=== PATIENT | female | born 2000 | race Caucasian/White ===

== ENCOUNTER 2020-04-16 03:15 | Outpatient (CLI) | payer OTHER, MEDICAID ==
[~2020-04-16] VITALS: Ht 165.1 cm; Wt 85.5 kg
--- NOTE | 2020-04-16 02:30 | NUR ---
G1L0. 38.4. Pt ambulatory to LDR 4 with significant other. Clean gown on. EFM and TOCO explained and applied. Pt states she has been earline all day but states since midnight tonight they have been 5 minutes apart and more intense. Denies leaking of fluids. Reports good movement. +1 pitting edema noted to legs and feet bilaterally. Pt reports she has had headaches, blurred vision and spotting the last couple weeks of but states is aware of this and is not concerned due to her BP remaining normal. Initial BP 134/91. Will continue serial BPs. SVE /-2. Assessment completed and plan of care explained to pt who verblaizes understanding. Call light within reach. 0350: SVE unchanged. Plan of care explained. Pt states contractions remain the same as to when she arrived at hospital. 0358: called and updated on pts status. See physican notification. 0402: Pt off monitors to change. 0415: Discharge instructions given to pt and significant other who verbalize understanding. Pt ambulatory off unit and home with spouse.
[2020-04-16 03:00] VITALS: BP 134/91; PULSE 77; TEMP 97.8
[2020-04-16 03:30] VITALS: BP 122/71; PULSE 76
[2020-04-16 04:02] VITALS: BP 121/82; PULSE 73
[2020-04-16] MEDS ORDERED: PRENATAL MVI PO (04:42)
[2020-04-16] MEDS ORDERED: CELEXA 20MG20 MG/TAB PO (04:42)
[2020-04-16] MEDS ORDERED: IRON 27 MG PO (04:42)
== END 2020-04-16 04:15 | disposition home or self-care (01) ==
LOC: LDRO 03:15
DX: O62.9 Abnormality of forces of labor, unspecified (principal); Z3A.38 38 weeks gestation of pregnancy

== ENCOUNTER 2020-04-25 23:42 | Inpatient (IN) | payer OTHER, MEDICAID ==
[~2020-04-25] VITALS: Ht 165.1 cm; Wt 85.5 kg
[~2020-04-25 23:42] MED LIST: CELEXA 20MG20 MG/TAB PO; IRON 27 MG PO; PRENATAL MVI PO
[2020-04-25 23:45] VITALS: BP 139/93; PULSE 85
[2020-04-26] VITALS (86 sets, daily range): BP systolic 106–157; BP diastolic 57–114; PULSE 67–120; TEMP 98.1–99
[2020-04-26 00:12] LABS: BASO % 0.3 % (0.0-2.0); EOS # 0.2 (0.0-0.7); EOS % 1.5 % (0-4.0); GRAN # 8.4 (1.4-6.5); GRAN % 71.1 % (42.2-75.2); HEMOGLOBIN 11.3 g/dl (12.0-15.0); LYMPH # 2.3 (1.2-3.4); LYMPH % 19.1 % (20.0-51.0); MEAN CELL VOLUME 91 fl (80.0-95.0); MEAN CORPUSCULAR HEMOGLOBIN 31 pg (26.0-32.0); MEAN CORPUSCULAR HGB CONC 34 g/dl (33.0-37.0); MEAN PLATELET VOLUME 12.2 fl (7.4-10.4); MONO # 0.8 (0.1-0.6); MONO % 6.6 % (1.7-9.3); PLATELET COUNT 117 K/mm3 (130-400); RED BLOOD COUNT 3.68 M/mm3 (4.10-5.30); REDCELL DISTRIBUTION WIDTH-CV 15.9 % (11.5-14.5)
[2020-04-26 00:16] LABS: HEMATOCRIT 33.3 % (35.0-45.0)
[2020-04-26 00:22] LABS: ALBUMIN 3.4 gm/dL (3.5-5.0); BILIRUBIN,TOTAL 0.5 mg/dL (0.0-1.0); CREATININE, serum 0.64 (0.52-1.25); POTASSIUM 3.8 mmol/L (3.4-5.0); TOTAL PROTEIN 6.6 gm/dL (6.4-8.2)
[2020-04-26 01:01] LABS: COLLECTION METHOD CLEAN CATCH
[2020-04-26 01:16] LABS: MUCOUS Present /lpf; PH 6 (5-8); URINE APPEARANCE Clear; URINE BACTERIA Rare /hpf; URINE BILIRUBIN Negative (NEGATIVE); URINE BLOOD Negative (NEGATIVE); URINE COLOR Yellow; URINE GLUCOSE Negative (NEGATIVE); URINE KETONE Negative (NEGATIVE); URINE LEUKOCYTE ESTERASE Negative (NEGATIVE); URINE NITRATE Negative (NEGATIVE); URINE PROTEIN(semi-quant) 3+ (NEGATIVE); URINE UROBILINOGEN Negative (NEGATIVE)
--- NOTE | 2020-04-26 02:10 | NUR ---
0210 THIS RN ASSUMED CARE OF PT. MGSO4 4 GM LOADING DOSE ALREADY INFUSING PER PROTOCOL IN LEFT IV SITE. LR INFUSING IN LEFT IV SITE AT 25 ML/HOUR. TURNED TO LEFT SIDE. LIGHTS DOWN. NO C/O HEADACHE, EPIGASTRIC PAIN OR VISUAL DISTURBANCES AT THIS TIME. 0215 APRESOLINE 10MG IVP GIVEN.
--- NOTE | 2020-04-26 02:35 | NUR ---
0235 IV MGSO4 RUNNING AT 2GM PER HOUR RATE.
--- NOTE | 2020-04-26 03:30 | NUR ---
0330 1000CC LR TO IV SITE IN RIGHT WRIST TO RUN AT [employer]. PT VERY TALKATIVE. STATES NO COMPLAINTS AT THIS TIME. REMAINS RESTING ON LEFT SIDE.
--- NOTE | 2020-04-26 03:50 | NUR ---
0350 PITOCIN STARTED PER IVPB IN RIGHT IV SITE AT 2MU/MIN.
--- NOTE | 2020-04-26 05:00 | NUR ---
0500 C/O FEELING VERY CRAMPY. MAY WANT EPIDURAL SOON. RESTING ON RIGHT SIDE.
--- NOTE | 2020-04-26 05:45 | NUR ---
0545 FEELS NEED TO VOMIT. HOB ELEVATED AND WEDGED ON RIGHT SIDE. NO EMESIS. STATES CONTRACTIONS LESS CRAMPY WHEN SITTING UP. STATES DOES HAVE A HEADACHE THAT STARTED WHEN THE PITOCIN STARTED.
--- NOTE | 2020-04-26 06:30 | NUR ---
Report from Coni [address] RN and care of patient assumed. RN at bedside to assess patient and review plan of care. IV lines verified by 2 RNs. Assessment completed. Patient reports headaches but denies visual changes or RUQ pain. Lights remain dim and patient denies questions at this time. Call lights in reach.
--- NOTE | 2020-04-26 06:30 | NUR ---
Difficulty tracing via toco. Lolita replaced and abdomen palpated by RN. Patient reports "Irregular cramping".
--- NOTE | 2020-04-26 09:00 | NUR ---
Dr. Moreno on unit. Reviews patient history, blood pressures in office, and office notes per Dr. Dubose. Patient refusing COVID-19 testing per previous order. After physician reviews documentation and history, decision made that patient does not meet criteria for testing at this time.
--- NOTE | 2020-04-26 09:20 | NUR ---
Dr. Moreno on unit, reviews FHR strip and patient history/vitals. 0926- SVE per provider /2, AROM for moderate amount of clear fluid. Pericare given and patient updated on plan of care. Does not desire epidural at this time. Call light in reach.
--- NOTE | 2020-04-26 10:15 | NUR ---
Patient requesting epidural. Lee Malhotra CRNA. Orders for 250 ml LR bolus prior to epidural, currently infusing. Difficulty tracing contractions via toco as patient is moving in bed frequently with contraction pain. RN at bedside palpating abdomen. 1020- Lee Malhotra CRNA at bedside. Patient assisted to sit on edge of bed for placement. Difficulty tracing FHR due to maternal position and movement, Pitocin infusion paused at this time due to inability to trace. 1031- Epidural test dose by Lee Malhotra CRNA. Patient tolerates well, no adverse reactions noted. See anesthesia record. 1038-Patient repositioned LL following epidural placement. Updated on plan of care and safety. Multiple RNs at bedside adjusting toco, patient moving in bed frequently. 1045- Zofran given, see EMAR.
--- NOTE | 2020-04-26 11:15 | NUR ---
Multiple RNs remains at bedside adjusting toco and palpating abdomen.
--- NOTE | 2020-04-26 11:40 | NUR ---
Dr. Moreno on unit, reviews FHR strip, contraction pattern and updated on SVE. No new orders.
--- NOTE | 2020-04-26 12:02 | NUR ---
on unit. Orders to increase Pitocin to 20 mU and hold for one hour. If unchanged SVE at that time increase Pitocin to 30 mU.
[2020-04-26 13:02] LABS: HEMOGLOBIN 11.3 g/dl (12.0-15.0); MEAN CELL VOLUME 91 fl (80.0-95.0); MEAN CORPUSCULAR HEMOGLOBIN 31 pg (26.0-32.0); MEAN CORPUSCULAR HGB CONC 34 g/dl (33.0-37.0); MEAN PLATELET VOLUME 12.8 fl (7.4-10.4); PLATELET COUNT 101 K/mm3 (130-400); RED BLOOD COUNT 3.66 M/mm3 (4.10-5.30); REDCELL DISTRIBUTION WIDTH-CV 16.3 % (11.5-14.5)
[2020-04-26 13:05] LABS: HEMATOCRIT 33.2 % (35.0-45.0)
[2020-04-26 13:14] LABS: ALBUMIN 3.3 gm/dL (3.5-5.0); BILIRUBIN,TOTAL 0.6 mg/dL (0.0-1.0); CALCIUM 7.9 mg/dL (8.4-10.2); CREATININE, serum 0.72 (0.52-1.25); TOTAL PROTEIN 6.6 gm/dL (6.4-8.2)
[2020-04-26 13:17] LABS: MAGNESIUM 6.3 mg/dL (1.6-2.3)
--- NOTE | 2020-04-26 14:25 | NUR ---
LUIS per Donna Lindsay RN /-1. Patient repositioned LL.See physician notification.
--- NOTE | 2020-04-26 15:50 | NUR ---
Dr. Moreno on unit, reviews FHR strip and contraction pattern. No new orders at this time.
--- NOTE | 2020-04-26 16:31 | NUR ---
1615- Dr. Moreno at bedside. Reviews FHR strip. SVE per provider . Patient repositioned LL with right leg in stirrup. Physician remains on unit.
--- NOTE | 2020-04-26 17:15 | NUR ---
Patient repositioned to Mireille position. Dr. Moreno on unit, review strip. No new orders. Physician will assess patient after surgery.
--- NOTE | 2020-04-26 17:55 | NUR ---
Patient very uncomfortable with contractions. Lee Malhotra FIELD PROFESSIONAL Notified and requested to come assess when available. Dr. Moreno on unit.
--- NOTE | 2020-04-26 18:18 | NUR ---
Pt screaming with contractions. T.Thibodaux into room for epidural dosing/adjustment, see anesthesia record.
--- NOTE | 2020-04-26 18:23 | NUR ---
Dr Moreno into room, SVE. Discusses lack of cervical change with pt and boyfriend. Will recheck in 1 hour and if no cervical change will do . Questions invited and answered.
--- NOTE | 2020-04-26 19:15 | NUR ---
SVE with no changes noted. Report called to Dr Moreno.
--- NOTE | 2020-04-26 19:30 | NUR ---
SVE by Dr Moreno, no change. C/S discussed, Pitocin gtt off.
[2020-04-27] VITALS (21 sets, daily range): BP systolic 116–146; BP diastolic 72–108; PULSE 64–100; TEMP 97.7–98.4
--- NOTE | 2020-04-27 04:30 | NUR ---
Just completed pericare
--- NOTE | 2020-04-27 06:00 | NUR ---
Mag Sulfate turned off.
--- NOTE | 2020-04-27 06:30 | NUR ---
0630-Recieved bedside shift report. Patient A&Ox4, IVF to left forearm. Mag infusion turned off by previous ners per MD orders. Denies headache or vision changes. Reports pain controlled at this time reviewed pain managment options. Assessment complete. Dunne to DD, clear yellow urine. Assisted with . 0730-Dr. Dubose to room, orders to stop IVF. Reviews plan of care with patient. 0800-Dr. Dubose reviews labs and gives verbal order to transfer patient to unit and may have general diet. 1030-Dr Dubose contacted with recent BP's following magnesium infusing being shut off. Orders to continue to transfer to room.
[2020-04-27 08:17] LABS: MEAN CELL VOLUME 92 fl (80.0-95.0); MEAN CORPUSCULAR HGB CONC 34 g/dl (33.0-37.0); MEAN PLATELET VOLUME 12.9 fl (7.4-10.4); PLATELET COUNT 113 K/mm3 (130-400); RED BLOOD COUNT 3.06 M/mm3 (4.10-5.30); REDCELL DISTRIBUTION WIDTH-CV 16.6 % (11.5-14.5)
[2020-04-27 08:19] LABS: HEMATOCRIT 28.2 % (35.0-45.0); HEMOGLOBIN 9.7 g/dl (12.0-15.0); MEAN CORPUSCULAR HEMOGLOBIN 32 pg (26.0-32.0)
[2020-04-27 08:29] LABS: ALBUMIN 2.9 gm/dL (3.5-5.0); BILIRUBIN,TOTAL 0.4 mg/dL (0.0-1.0); CALCIUM 6.8 mg/dL (8.4-10.2); CREATININE, serum 0.89 (0.52-1.25); POTASSIUM 4.5 mmol/L (3.4-5.0); TOTAL PROTEIN 5.9 gm/dL (6.4-8.2)
[2020-04-27 08:54] LABS: MAGNESIUM 5.7 mg/dL (1.6-2.3)
--- NOTE | 2020-04-27 12:00 | NUR ---
1200-Patient up to bathroom with assist x1. Steady Gait. Dunne discontinued, fly care provided. Ambulatory back to bed and taken via bed down to room 213, Oriented to room and updated on plan of care.
[2020-04-27] MEDS ORDERED: PERCOCET 325 MG1 TA2 PO (12:07)
[2020-04-27] MEDS ORDERED: MOTRIN 800800 MG/TAB PO (12:07)
[2020-04-28] VITALS: BP 127/83; PULSE 77; TEMP 98.3
[2020-04-28 04:00] VITALS: BP 135/79; PULSE 78; TEMP 97.9
[2020-04-28 07:31] VITALS: BP 126/84; PULSE 69; TEMP 98.3
[2020-04-28 07:59] LABS: BASO % 0.1 % (0.0-2.0); EOS # 0.2 (0.0-0.7); EOS % 1.1 % (0-4.0); GRAN # 10.9 (1.4-6.5); GRAN % 77.1 % (42.2-75.2); LYMPH # 2.5 (1.2-3.4); LYMPH % 17.4 % (20.0-51.0); MEAN CELL VOLUME 93 fl (80.0-95.0); MEAN CORPUSCULAR HGB CONC 33 g/dl (33.0-37.0); MEAN PLATELET VOLUME 11.4 fl (7.4-10.4); MONO # 0.5 (0.1-0.6); MONO % 3.3 % (1.7-9.3); PLATELET COUNT 120 K/mm3 (130-400); RED BLOOD COUNT 2.87 M/mm3 (4.10-5.30); REDCELL DISTRIBUTION WIDTH-CV 17.2 % (11.5-14.5)
[2020-04-28 08:16] LABS: ALBUMIN 2.8 gm/dL (3.5-5.0); BILIRUBIN,TOTAL 0.3 mg/dL (0.0-1.0); CREATININE, serum 0.84 (0.52-1.25); HEMATOCRIT 26.8 % (35.0-45.0); HEMOGLOBIN 8.9 g/dl (12.0-15.0); MEAN CORPUSCULAR HEMOGLOBIN 31 pg (26.0-32.0); POTASSIUM 4.2 mmol/L (3.4-5.0); TOTAL PROTEIN 5.8 gm/dL (6.4-8.2)
[2020-04-28 11:09] VITALS: BP 128/82; PULSE 74; TEMP 98.4
[2020-04-28 15:57] VITALS: BP 136/89; PULSE 84; TEMP 98.7
[2020-04-28 20:30] VITALS: BP 145/84; PULSE 80; TEMP 98.5
[2020-04-29 01:30] VITALS: BP 136/72; PULSE 82; TEMP 98.2
[2020-04-29 07:15] VITALS: BP 137/91; PULSE 89; TEMP 97.7
--- NOTE | 2020-04-29 12:48 | NUR ---
1155 DISCHARGE INSTRUCTIONS REVIEWED WITH PATIENT. PATIENT VERBALIZED UNDERSTANDING. ALL QUESTIONS ANSWERED. PATIENT GOING TO FINISH NURSING BABE THEN NOTIFY THIS RN WHEN READY TO LEAVE. 1240 ALL PERSONAL BELONGINGS GATHERED FROM PATIENT ROOM. PATIENT LEFT AMBULATORY AND IN NO APPARENT DISTRESS. PATIENT ACCOMPANIED BY THIS RN AND SIGNIFICANT OTHER.
== END 2020-04-29 12:40 | disposition home or self-care (01) | DRG 788 ==
LOC: LDR 23:42 → LDRO 23:42 → LDR 04-26 01:05 → OB 04-26 01:05 → LDRO 04-26 01:05 → LDR 04-26 01:25 → OB 04-27 10:45
PROVIDERS: Obstetrics & Gynecology; Student in an Organized Health Care Education/Training Program; ADMIT Obstetrics & Gynecology
PROC: 10D00Z1 Extraction of Products of Conception, Low, Open Approach (ICD-10-PCS; principal; 2020-04-27)
DX: O14.24 HELLP syndrome, complicating childbirth (principal); Z37.0 Single live birth; O99.62 Diseases of the digestive system complicating childbirth; K21.9 Gastro-esophageal reflux disease without esophagitis; O99.02 Anemia complicating childbirth; D64.9 Anemia, unspecified; O99.344 Other mental disorders complicating childbirth; F41.9 Anxiety disorder, unspecified; F90.9 Attention-deficit hyperactivity disorder, unspecified type; F42.9 Obsessive-compulsive disorder, unspecified; O62.1 Secondary uterine inertia; Z3A.40 40 weeks gestation of pregnancy
CPT/HCPCS: J0360; J0690; J1100; J1885; J2270; J2405; J2590; J2704; J3010; J3475; J7120